=== PATIENT | female | born 1960 | race Caucasian/White ===

== ENCOUNTER → 2016-12-04 | Outpatient (CLI) | payer OTHER | END | disposition home or self-care (01) | LOC: GMAB 11:20 | PROVIDERS: ATTEND Family Medicine | DX: Z00.00 Encounter for general adult medical examination without abnormal findings (principal); E03.9 Hypothyroidism, unspecified ==

== ENCOUNTER → 2016-12-12 | Outpatient (CLI) | payer OTHER, SELFPAY ==
--- NOTE | 2016-12-12 10:21 | CT ---
EXAM DESCRIPTION: Chest CT. CLINICAL HISTORY: Solitary pulmonary nodule. COMPARISON: None. TECHNIQUE: A volumetric CT with IV contrast was acquired and displayed in multiplanar reconstructions. FINDINGS: Mediastinum: Aneurysm of the ascending aorta which measures approximately 4.9 cm of the level of the right pulmonary artery. Aortic valve replacement. Prior sternotomy. Coronary artery disease noted. Visualized lymph nodes are within normal limits for CT size criteria. No acute aortic abnormality, pericardial effusion, or mediastinal mass. Upper Abdomen: Visualized segments of the abdominal organs are unremarkable. Lungs: Pleural surfaces are unremarkable. There is no suspicious pulmonary nodularity, consolidation, or interstitial thickening. Bones: No suspicious bone lesion is seen. IMPRESSION: Aneurysmal dilatation of the ascending aorta measuring 4.9 cm in diameter. This should be routinely imaged every 6 months given its nearly 5 cm diameter. No definitive pulmonary nodule noted on today's exam. Electronically signed by: Prasanna Calvin MD 12/12/2016 10:20
--- NOTE | 2016-12-12 10:41 | US ---
EXAM DESCRIPTION: US THYROID CLINICAL HISTORY: HYPOTHYROIDISM COMPARISON: None. TECHNIQUE: Sonographic images of the thyroid are obtained. FINDINGS: Right lobe of the thyroid measures 6.5 x 2.5 x 1.9 cm. Right lobe is heterogeneous in echogenicity. Nodule 1: Size: 5 x 5 x 4 mm Location: Upper pole right lobe 1.Composition: Completely solid 2.Echogenicity:Hyperechoic 3.Shape: Wider than tall 4.Margins: Smooth 5.Echogenic foci: Absent Nodule 2: Size: 15 x 15 x 9 mm Location: Posterior midpole right lobe 1.Composition: Almost completely solid 2.Echogenicity:Heterogeneous and hypoechoic 3.Shape: Wider than tall 4.Margins: Smooth 5.Echogenic foci: Absent A 3rd 6 mm hypoechoic well-circumscribed solid nodule in the posterior mid pole is seen. The isthmus measures 4 mm in thickness. The left lobe measures 3.4 x 0.9 x 1.2 cm. IMPRESSION: Enlarged right lobe of the thyroid appears heterogeneous with at least 3 mostly solid appearing nodules as described above. Consider fine-needle aspiration of the largest nodule measuring 15 mm based on size criteria. Electronically signed by: Uday Isaac MD 12/12/2016 10:39
== END ==
LOC: CT 09:14
PROVIDERS: ATTEND Family Medicine
DX: R91.1 Solitary pulmonary nodule (principal); E03.9 Hypothyroidism, unspecified; E04.9 Nontoxic goiter, unspecified; I71.4 Abdominal aortic aneurysm, without rupture

== ENCOUNTER → 2017-04-18 | Outpatient (CLI) | payer OTHER | LOC: GMAB 17:05 | PROVIDERS: ATTEND Family Medicine | DX: E03.9 Hypothyroidism, unspecified (principal) ==

== ENCOUNTER → 2018-11-14 | Outpatient (CLI) | payer OTHER | LOC: GMAE 14:04 | PROVIDERS: ATTEND Family Medicine | DX: Z00.01 Encounter for general adult medical examination with abnormal findings (principal) ==